=== PATIENT | female | born 1985 | race Caucasian/White ===

== ENCOUNTER → 2016-05-31 | Outpatient (CLI) | payer BC ==
[~2016-05-31] MED LIST: PHEN-876 PO; SULF800T23 PO
== END | disposition home or self-care (01) ==
LOC: C.PATHSPEC 13:20
PROVIDERS: ATTEND Obstetrics & Gynecology
DX: R87.612 Low grade squamous intraepithelial lesion on cytologic smear of cervix (LGSIL) (principal)

== ENCOUNTER → 2016-11-27 | Outpatient (CLI) | payer BC | END | disposition home or self-care (01) | LOC: C.PAPS 11:50 | PROVIDERS: ATTEND Obstetrics & Gynecology | DX: Z01.419 Encounter for gynecological examination (general) (routine) without abnormal findings (principal); Z87.42 Personal history of other diseases of the female genital tract ==

== ENCOUNTER → 2017-06-06 | Outpatient (CLI) | payer BC | END | disposition home or self-care (01) | LOC: C.PAPS 12:40 | PROVIDERS: ATTEND Obstetrics & Gynecology | DX: R87.612 Low grade squamous intraepithelial lesion on cytologic smear of cervix (LGSIL) (principal) ==

== ENCOUNTER → 2017-07-17 | Outpatient (CLI) | payer BC | END | disposition home or self-care (01) | LOC: C.LAB 16:29 | PROVIDERS: ATTEND Obstetrics & Gynecology | DX: Z29.13 Encounter for prophylactic Rho(D) immune globulin (principal); O26.859 Spotting complicating pregnancy, unspecified trimester ==

== ENCOUNTER → 2017-07-21 | Outpatient (CLI) | payer BC | END | disposition home or self-care (01) | LOC: C.LAB1850 14:42 | PROVIDERS: ATTEND Obstetrics & Gynecology | DX: O26.859 Spotting complicating pregnancy, unspecified trimester (principal); Z29.13 Encounter for prophylactic Rho(D) immune globulin; O46.90 Antepartum hemorrhage, unspecified, unspecified trimester; Z3A.00 Weeks of gestation of pregnancy not specified ==

== ENCOUNTER → 2017-07-28 | Outpatient (CLI) | payer BC | END | disposition home or self-care (01) | LOC: C.LAB 17:38 | PROVIDERS: ATTEND Obstetrics & Gynecology | DX: O46.90 Antepartum hemorrhage, unspecified, unspecified trimester (principal); Z3A.00 Weeks of gestation of pregnancy not specified ==

== ENCOUNTER → 2017-08-11 | Outpatient (CLI) | payer BC | END | disposition home or self-care (01) | LOC: C.LAB 18:27 | PROVIDERS: ATTEND Obstetrics & Gynecology | DX: O46.90 Antepartum hemorrhage, unspecified, unspecified trimester (principal); Z3A.00 Weeks of gestation of pregnancy not specified ==

== ENCOUNTER → 2017-08-18 | Outpatient (CLI) | payer BC | END | disposition home or self-care (01) | LOC: C.LAB1850 16:09 | PROVIDERS: ATTEND Obstetrics & Gynecology | DX: O46.90 Antepartum hemorrhage, unspecified, unspecified trimester (principal); Z3A.00 Weeks of gestation of pregnancy not specified ==

== ENCOUNTER → 2017-09-03 | Outpatient (CLI) | payer BC | END | disposition home or self-care (01) | LOC: C.LAB1850 13:20 | PROVIDERS: ATTEND Obstetrics & Gynecology | DX: O46.90 Antepartum hemorrhage, unspecified, unspecified trimester (principal) ==

== ENCOUNTER 2017-09-17 09:23 | Emergency (ER) | payer BC ==
[~2017-09-17] VITALS: Ht 175.3 cm; Wt 65.0 kg
[2017-09-17 09:29] VITALS: TEMP 36.7; Ht 175.3 cm; Wt 65.0 kg
[2017-09-17] MEDS ORDERED: KETOROLAC TROMETHAMINE 30 MG/ML VIAL IV STA (09:43)
[2017-09-17] MEDS ORDERED: ONDANSETRON INJ 2 MG/ML 2 ML VIAL IV STA (09:43)
[2017-09-17] MEDS ORDERED: SODIUM CHLORIDE 0.9% 1000ML 1,000 ML IV STA (09:43)
[2017-09-17] MEDS ORDERED: OPTIRAY 320 IV PRN (10:00)
[2017-09-17] MEDS ORDERED: KFL/250 PO (10:00)
[2017-09-17 10:18] LABS: BASO % 0.3 %; BASO ABS # 0.02 K/uL (0-0.2); EOS % 0.9 %; EOS ABS # 0.06 K/uL (0-0.5); HEMATOCRIT 35.2 % (37-47); HEMOGLOBIN 12.1 g/dL (12.0-16.0); LYMPH % 11.4 %; LYMPH ABS # 0.74 K/uL (1.2-3.4); MEAN CELL VOLUME 94.9 fL (80-100); MEAN CORPUSCULAR HEMOGLOBIN 32.6 pg (25-34); MEAN CORPUSCULAR HGB CONC 34.4 g/dl (32-36); MEAN PLATELET VOLUME 10.1 fL (7.4-10.4); MONO % 6.9 %; MONO ABS # 0.45 K/uL (0.11-0.59); NEUT % 80.5 %; NEUT ABS # 5.24 K/uL (1.4-6.5); PLATELET COUNT 217 K/uL (130-400); RED CELL DISTRIBUTION WIDTH CV 12.1 % (11.5-14.5); RED CELL DISTRIBUTION WIDTH SD 41.8 fL (36.4-46.3); WHITE BLOOD COUNT 6.51 K/uL (4.8-10.8)
[2017-09-17 10:49] LABS: ALBUMIN 3.8 gm/dl (3.4-5.0); CALCIUM 8.7 mg/dl (8.5-10.1); CREATININE 0.83 mg/dl (0.60-1.20); POTASSIUM 3.8 mmol/L (3.5-5.1)
[2017-09-17 10:52] LABS: TOTAL PROTEIN 7.1 gm/dl (6.4-8.2)
[2017-09-17] MEDS ORDERED: CEFTRIAXONE SOD INJ 1 GM ADDVIAL IV STA (11:21)
--- NOTE | 2017-09-17 11:41 | DIAGNOSTIC IMAGING REPORT ---
ABD/PELVIS IV CONTRAST ONLY CT DOSE: 424.62 mGycm HISTORY: Pelvic pain r flank pain/lower back pain TECHNIQUE: Multiaxial CT images of the abdomen and pelvis were performed following the use of intravenous contrast. A dose lowering technique was utilized adhering to the principles of ALARA. COMPARISON STUDY: None. FINDINGS: Lung bases are clear. Liver spleen and pancreas are unremarkable. There appears to be some fullness in the region of the pancreatic head which is felt to be due to interposition of the duodenal sweep. Bowel pattern is nonobstructive. Appendix is normal. There is a normal fecal load within the colon. Bladder is midline. There is a 3.5 cm right ovarian cyst with a collapsing 2 cm cyst. There is a small amount of free fluid within the pelvic cul-de-sac. Left ovary contains a 2 cm cyst. Bladder is midline. IMPRESSION: 1. Complex and/or partially collapsing right ovarian cyst measuring 3.6 x 1.9 cm. 2. 2 cm left ovarian cyst. 3. Nonobstructive bowel pattern. 4. Normal appendix. 5. No evidence for an obstructing urinary tract calculus. The above report was generated using voice recognition software. It may contain grammatical, syntax or spelling errors. Electronically signed by: Aldo Acevedo M.D. 09/17/2017 11:40 AM Dictated Date/Time: 09/17/2017 11:37 AM
[2017-09-17 12:28] VITALS: BP 110/55; PULSE 76; O2SAT 99
--- NOTE | 2017-09-17 16:11 | EMERGENCY ROOM VISIT NOTE ---
History Report prepared by Jayson: Dieter Pan Under the Supervision of: Dr. Kamaljit Seaman D.O. First contact with patient: 09:31 Chief Complaint: FLANK PAIN Stated Complaint: PAINFUL URINATION, VOMITTING, SIDE BACK, ABD PAIN History of Present Illness The patient is a 32 year old female who presents to the Emergency Room with complaints of constant right flank pain beginning yesterday. She reports vomiting today. She states that she had some pain in her right lower abdomen today as well, but this has improved. The patient also complains of urinary symptoms including burning with urination and increased frequency. She has had urinary symptoms for about 10 days. She began Bactrim for a UTI six days ago, but only took four days worth of medicine. The patient was seen by her PCP again yesterday for worsening of her urinary symptoms, and was started on a new antibiotic. Her LNMP was three weeks ago. She notes that she had a miscarriage two months ago. She has no history of STI, or abdominal surgery. Pt denies headache, change in vision, fevers, chest pain, shortness of breath, diarrhea, and melena. Source of History: patient Onset: Yesterday Position: other (right flank) Timing: constant Associated Symptoms: + vomiting, + abdominal pain (RLQ, improved), + urinary symptoms (burning, increased frequency), No fevers, No headache, No chest pain, No SOB, No melena, No diarrhea Review of Systems See HPI for pertinent positives & negatives. A total of 10 systems reviewed and were otherwise negative. Past Medical & Surgical Medical Problems: (1) No Known Active Medical Problems (2) UTI (urinary tract infection) Family History No pertinent family history stated. Social History Housing Status: lives with significant other Current/Historical Medications Scheduled Cephalexin Monohydrate (Keflex), Unknown Dose PO BID Phenazopyridine HCl (Pyridium), 200 MG PO TID PRN Allergies Coded Allergies: No Known Allergies (Unverified , 09/17/17) Physical Exam Vital Signs Date Time Temp Pulse Resp B/P (MAP) Pulse Ox O2 Delivery O2 Flow Rate FiO2 09/17/17 12:28 76 16 110/55 99 Room Air 09/17/17 11:30 71 16 117/68 99 Room Air 09/17/17 09:29 36.7 81 20 128/87 98 Room Air Physical Exam GENERAL: Sitting up in bed, alert, well appearing, well nourished, no distress, non-toxic EYE EXAM: normal conjunctiva. OROPHARYNX: no exudate, no erythema, lips, buccal mucosa, and tongue normal and mucous membranes are moist NECK: supple, no nuchal rigidity, no adenopathy, non-tender LUNGS: Clear to auscultation. Normal chest wall mechanics HEART: no murmurs, S1 normal and S2 normal ABDOMEN: abdomen soft, non-tender, normo-active bowel sounds, no masses, no rebound or guarding. BACK: Back is symmetrical on inspection and there is no deformity, no midline tenderness. Tenderness within the right flank. SKIN: no rashes and no bruising UPPER EXTREMITIES: upper extremities are grossly normal. LOWER EXTREMITIES: No pitting edema. NEURO EXAM: Normal sensorium, cranial nerves II-XII grossly intact, normal speech, no gross weakness of arms, no gross weakness of legs. Medical Decision & Procedures ER Provider Diagnostic Interpretation: Radiology results as stated below per my review and the radiologist's interpretation: ABD/PELVIS IV CONTRAST ONLY FINDINGS: Lung bases are clear. Liver spleen and pancreas are unremarkable. There appears to be some fullness in the region of the pancreatic head which is felt to be due to interposition of the duodenal sweep. Bowel pattern is nonobstructive. Appendix is normal. There is a normal fecal load within the colon. Bladder is midline. There is a 3.5 cm right ovarian cyst with a collapsing 2 cm cyst. There is a small amount of free fluid within the pelvic cul-de-sac. Left ovary contains a 2 cm cyst. Bladder is midline. IMPRESSION: 1. Complex and/or partially collapsing right ovarian cyst measuring 3.6 x 1.9 cm. 2. 2 cm left ovarian cyst. 3. Nonobstructive bowel pattern. 4. Normal appendix. 5. No evidence for an obstructing urinary tract calculus. The above report was generated using voice recognition software. It may contain grammatical, syntax or spelling errors. Electronically signed by: Aldo Acevedo M.D. 09/17/2017 11:40 AM Laboratory Results 09/17/17 10:00 Red Blood Count 3.71, Mean Corpuscular Volume 94.9, Mean Corpuscular Hemoglobin 32.6, Mean Corpuscular Hemoglobin Concent 34.4, Mean Platelet Volume 10.1, Neutrophils (%) (Auto) 80.5, Lymphocytes (%) (Auto) 11.4, Monocytes (%) (Auto) 6.9, Eosinophils (%) (Auto) 0.9, Basophils (%) (Auto) 0.3, Neutrophils # (Auto) 5.24, Lymphocytes # (Auto) 0.74, Monocytes # (Auto) 0.45, Eosinophils # (Auto) 0.06, Basophils # (Auto) 0.02 09/17/17 10:00 Test 09/17/17 09:45 09/17/17 10:00 Urine Color ORANGE Urine Appearance CLOUDY (CLEAR) Urine pH (4.5-7.5) Urine Specific [place] 1.016 (1.000-1.030) Urine Protein NEG (NEG) Urine Glucose (UA) (NEG) Urine Ketones (NEG) Urine Occult Blood (NEG) Urine Nitrite (NEG) Urine Bilirubin (NEG) Urine Urobilinogen (NEG) Urine Leukocyte Esterase (NEG) Urine RBC >30 /hpf (0-4) Urine WBC 1-5 /hpf (0-5) Urine Epithelial Cells 20-30 /lpf (0-5) Urine Bacteria 1+ (NEG) Urine Hyaline Casts 5-10 /lpf (0-5) Urine Test NEG (NEG) White Blood Count 6.51 K/uL (4.8-10.8) Red Blood Count 3.71 M/uL (4.2-5.4) Hemoglobin 12.1 g/dL (12.0-16.0) Hematocrit 35.2 % (37-47) Mean Corpuscular Volume 94.9 fL (80-100) Mean Corpuscular Hemoglobin 32.6 pg (25-34) Mean Corpuscular Hemoglobin Concent 34.4 g/dl (32-36) Platelet Count 217 K/uL (130-400) Mean Platelet Volume 10.1 fL (7.4-10.4) Neutrophils (%) (Auto) 80.5 % Lymphocytes (%) (Auto) 11.4 % Monocytes (%) (Auto) 6.9 % Eosinophils (%) (Auto) 0.9 % Basophils (%) (Auto) 0.3 % Neutrophils # (Auto) 5.24 K/uL (1.4-6.5) Lymphocytes # (Auto) 0.74 K/uL (1.2-3.4) Monocytes # (Auto) 0.45 K/uL (0.11-0.59) Eosinophils # (Auto) 0.06 K/uL (0-0.5) Basophils # (Auto) 0.02 K/uL (0-0.2) RDW Standard Deviation 41.8 fL (36.4-46.3) RDW Coefficient of Variation 12.1 % (11.5-14.5) Immature Granulocyte % (Auto) 0.0 % Immature Granulocyte # (Auto) 0.00 K/uL (0.00-0.02) Anion Gap 6.0 mmol/L (3-11) Est Creatinine Clear Calc Drug Dose 101.7 ml/min Estimated GFR () 109.7 Estimated GFR (Non- 94.6 BUN/Creatinine Ratio 13.3 (10-20) Calcium Level 8.7 mg/dl (8.5-10.1) Total Bilirubin 0.3 mg/dl (0.2-1) Direct Bilirubin 0.1 mg/dl (0-0.2) Aspartate Amino Transf (AST/SGOT) 12 U/L (15-37) Alanine Aminotransferase (ALT/SGPT) 16 U/L (12-78) Alkaline Phosphatase 30 U/L (45-117) Total Protein 7.1 gm/dl (6.4-8.2) Albumin 3.8 gm/dl (3.4-5.0) Lipase 106 U/L (73-393) Laboratory results per my review. Medications Administered Medications (Trade) Dose Ordered Sig/Marisol Route Start Time Stop Time Status Last Admin Dose Admin Ketorolac Tromethamine (Toradol Inj) 30 mg NOW STAT IV 09/17/17 09:43 09/17/17 09:45 DC 09/17/17 10:05 30 MG Sodium Chloride 1,000 ml @ 999 mls/hr Q1H1M STAT IV 09/17/17 09:43 09/17/17 10:43 DC 09/17/17 10:05 999 MLS/HR Ondansetron HCl (Zofran Inj) 4 mg NOW STAT IV 09/17/17 09:43 09/17/17 09:45 DC 09/17/17 10:05 4 MG Ceftriaxone Sodium (Rocephin Inj) 1 gm NOW STAT IV 09/17/17 11:21 09/17/17 11:22 DC 09/17/17 11:42 1 GM ED Course ED COURSE: Vital signs were reviewed and appeared normal. The patients medical record was reviewed The above diagnostic studies were performed and reviewed. ED treatments and interventions as stated above. 0935: The patient was evaluated in room A11B. A complete history and physical examination was performed. 0943: Ordered Zofran Inj 4 mg IV, Sodium Chloride 1000 ml @ 999 mls/hr IV, Toradol Inj 30 mg IV. 1121: Ordered Rocephin Inj 1 gm IV. 1210: Upon reevaluation, the patient is resting comfortably. I discussed my findings with the patient and she understands and agrees with the treatment plan. Based on the patients age, coexisting illnesses, exam and lab findings the decision to treat as an outpatient was made. The patient remained stable while under my care. The patient appeared well at the time of discharge. Medical Decision Differential diagnoses includes but is not limited to gastritis, peptic ulcer disease, GERD, gallbladder disease, pancreatitis, small bowel obstruction, acute coronary syndrome, pericarditis, ischemic bowel, irritable bowel disease, irritable bowel syndrome, appendicitis, diverticulitis, malignancy, hernia, urinary tract infection, torsion, /ectopic , perforation, trauma, infectious. Patient is a 32-year-old female who presents the ER for right flank pain. Patient was treated with antibiotics for UTI over the course of a total of 5 days. She notes that now she has severe right flank pain. CBC along with BMP, LFTs, bilirubin lipase is unremarkable. UA was contaminated. was negative. CT shows a right ovarian cyst which ruptured. Her pain is improved significantly. I do favor that this likely the cause of her symptoms. Patient was given IV Zofran, Toradol and fluids. Patient did feel significantly better. Patient was updated at bedside discharge follow-up with PCP as an outpatient as I do favor all the symptoms are likely related to her ovarian cyst and a recently treated UTI. Did encourage her to continue antibiotics. Discussed with Pt concerning signs and symptoms to watch out for. Pt was instructed to follow up with their PCP and discussed with the patient their option to return to the ED at anytime for persistent or worsening symptoms. The appropriate anticipatory guidance and out-patient management, including indications for return to the emergency department, were explained at length to the patient and understood. Medication Reconcilliation Current Medication List: was personally reviewed by me Blood Pressure Screening Patient's blood pressure: Normal blood pressure Blood pressure disposition: Did not require urgent referral Impression Primary Impression: Ovarian cyst Scribe Attestation The scribe's documentation has been prepared under my direction and personally reviewed by me in its entirety. I confirm that the note above accurately reflects all work, treatment, procedures, and medical decision making performed by me. Departure Information Dispostion Home / Self-Care Referrals No Doctor, Assigned (PCP) Forms HOME CARE DOCUMENTATION FORM, IMPORTANT VISIT INFORMATION Patient Instructions Cyst Ruptured Ovarian Tx, My [facility] Additional Instructions Please follow up with your primary care doctor with in the next 24 hours. Any worsening of your symptoms, please return to the ED immediately. This includes any fevers greater than 100.4, worsening pain, chest pain, shortness breath, persistent nausea, vomiting, unable to eat or drink, or any other concerning signs or symptoms from your standpoint. Please take Tylenol or Motrin as needed for pain. Please continue your antibiotics for your UTI. Problem Qualifiers Primary Impression: Ovarian cyst Laterality: right Qualified Codes: N83.201 - Unspecified ovarian cyst, right side
== END 2017-09-17 12:33 | disposition home or self-care (01) ==
LOC: C.EDB 09:24 → C.EDA 12:33
DX: N83.201 Unspecified ovarian cyst, right side (principal); Z87.440 Personal history of urinary (tract) infections

== ENCOUNTER 2024-07-06 20:10 | Inpatient (IN) ==
[2024-07-06] MEDS ORDERED: LIDOCAINE 1% LOCAL 20 ML VIAL INFIL PRN (20:58)
--- NOTE | 2024-07-06 21:06 | History & Physical Report ---
Date of Service July 06, 2024 Assessment & Plan (1) Supervision of elderly primigravida: Plan: Admit to L&D. EFM/toco. Labs - will check glucose with admission labs, will check glucose hourly. OK for epidural if she desires - not sure at this time if she'd like. (2) Insulin controlled gestational diabetes mellitus (GDM) during : History of Present Illness Chief Complaint: labor Primary Care Provider: SUDEEP Clarke 39yo @ 39 , presented to L&D with contractions. +FM, no vaginal bleeding, no leaking fluid. and Delivery Plans AMA *Weekly NST's @ 36wks. Abnormal QUAD- highrisk for Down Syndrome *Weekly NST's @ 36wks *Genetic consult--03/30 no further testing. *Low Risk Panorama Needs MMR PP Non immune hep B Rh negative *rhogam candidate Given 04/23/24 ML GDM on insulin *Wkly NSTs @32wks and Twice wkly @36wks *Serial growth US @28wks *Deliver by [facility] Allergies Allergy/AdvReac Type Severity Reaction Status Date / Time No Known Drug Allergies Allergy Verified 07/02/24 15:58 Home Medications Medication Instructions Recorded Confirmed Type prenat.vits,analia,yau-ntwu-tfiaa tab PO 12/02/23 07/02/24 History acetone (urine) test (Ketone Urine #50 ea 03/08/24 07/02/24 Rx Test strips) blood sugar diagnostic (OneTouch #150 ea 03/25/24 07/02/24 Rx Verio test strips) blood-glucose meter (OneTouch #1 ea 03/25/24 07/02/24 Rx Verio Flex Start kit) lancets 33 gauge (OneTouch Delica #150 ea 03/25/24 07/02/24 Rx Plus Lancet) insulin NPH isoph U-100 human 100 8 unit (0.08 mL) subcut .at bed 05/13/24 07/02/24 Rx unit/mL (3 mL) subcutaneous pen time #15 mL (Novolin N FlexPen) pen needle, diabetic 32 gauge x #100 ea 05/13/24 07/02/24 Rx 5/32" (BD Ultra-Fine Mary Pen Needle) Novolog FlexPen U-100 Insulin 100 5 unit (0.05 mL) subcut .with 05/14/24 07/02/24 Rx unit/mL (3 mL) subcutaneous largest meal #15 mL (insulin aspart U-100) Patient History Medical History 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 08/27/18 Mild dysplasia of cervix (JOSE I) Spontaneous Ovarian cyst UTI (urinary tract infection) Surgical History H/O breast biopsy 2022 left inner quad, benign H/O colposcopy with cervical biopsy S/P wisdom tooth extraction Family History (Updated 06/20/22 @ 14:49 by BALJEET Colon) Father Alcohol abuse Cardiac disorder Hypertension Mother Pancreatic cancer, Onset Age: 61 Denies family history of Ovarian cancer Prostate cancer Myocardial infarction Breast cancer Colorectal cancer Social History (Updated 12/02/23 @ 13:47 by Azul Chaudhry) Smoking Status: Never smoker Second Hand Exposure: No; Do You Dip or Chew Tobacco: No; Hx Alcohol Use: Yes Alcohol type: wine Hx Substance Use: No Preferred Language: Faroese Communication Ability: Effective Hearing Ability: Normal Chemistry Research Assistant Required: No Beliefs That Will Affect Care: None marital status: marital status details: Yuly (33) [phone] Current Living Situation: Spouse Current Living Situation Comment: lives with spouse, 1 dog. current occupational status: employed current occupation: senior op analyist for retail Feels Safe at Home: Yes Safety Concerns: Feels Safe At This Time Childhood Exposure to Second-Hand Smoke: No Diet: regular caffeine: Yes Dental Care, Regularly: Yes Physical Activity Frequency: Does not Exercise Seatbelt Use: sometimes Assistive Devices: None Review of Systems All systems reviewed & are unremarkable except as noted in HPI & below Physical Exam Physical Exam: FHT Cat 1 [place] Q 2 SVE 390/-1 per RN exam. Constitutional: WD/WN, vitals as above Respiratory: normal respiratory effort, lungs clear to auscultation no respiratory distress Cardiovascular: Rate/Rhythm: regular rate and regular rhythm Gastrointestinal (Abdomen): Inspection/Auscultation: abdomen normal to inspection Percussion/Palpation: abdomen soft; abdomen nontender Gravid. No s/s chorio or abruption. Skin: no rashes, warm and dry Psychiatric: A+Ox3, euthymic affect Results & Data Vital Signs (Past 12 Hours) Vital Signs Temp Pulse Resp BP 07/06/24 20:26 90 130/81 07/06/24 20:22 36.5 C 16 Coding Level of Care Code None Diagnoses Supervision of elderly primigravida O09.519 Insulin controlled gestational diabetes mellitus (GDM) in third trimester O24.414 Trimester: third trimester (2) Insulin controlled gestational diabetes mellitus (GDM) during Trimester: third trimester Qualified Code(s): O24.414 - Gestational diabetes mellitus in , insulin controlled
[2024-07-06] MEDS: LACTATED RINGER'S 1,000 ML IV PRN (21:19)
[2024-07-06 21:58] LABS: Hematocrit (blood only) 32.3 % (37.0-47.0); Hemoglobin 11.5 g/dl (12.0-16.0); Mean Corpuscular Hgb Conc 35.6 g/dL (32.0-36.0); Mean Corpuscular Volume 92.6 fL (80.0-100.0); Mean Platelet Volume 10.1 fL (9.4-12.4); Platelet Count 282 K/uL (130-400); RDW Coefficient of Variation 12.5 % (11.5-14.5); RDW Standard Deviation 42.1 fL (36.4-46.3); Red Blood Count 3.49 M/uL (4.20-5.40); White Blood Count 14.07 K/ul (4.8-10.8)
[2024-07-06] MEDS ORDERED: NALOXONE HCL 1 MG in SODIUM CHLORIDE 0.9% 1,000 ML IV PRN (22:23)
[2024-07-06] MEDS ORDERED: LIDOCAINE 2%/EPINEPHRINE 1:200,000 20 ML PF EPI STA (22:23)
[2024-07-06] MEDS ORDERED: LIDOCAINE 2% MPF LOCAL 5 ML VIAL EPI PRN (22:23)
[2024-07-06] MEDS ORDERED: fentaNYL citrate PF 100 MCG/2 ML VIAL EPI PRN (22:23)
[2024-07-06] MEDS ORDERED: SODIUM CHLORIDE 0.9% PF INJ 10 ML VIAL EPI STA (22:23)
[2024-07-06] MEDS ORDERED: BUPIVACAINE 0.25% PF 30 ML VIAL EPI STA (22:23)
[2024-07-06] MEDS ORDERED: ROPIVACAINE 0.5% PF 5 MG/ML 20 ML VIAL EPI PRN (22:23)
[2024-07-06] MEDS ORDERED: ePHEDrine sulfate 50 MG/ML AMP IV PRN (22:23)
[2024-07-06] MEDS ORDERED: SODIUM CHLORIDE 0.9% PF INJ 10 ML VIAL EPI PRN (22:23)
[2024-07-06] MEDS ORDERED: NALOXONE HCL 0.4 MG/1 ML VIAL/CARP IV PRN (22:23)
[2024-07-06] MEDS ORDERED: fentANYL 2 MCG/ML BUPIVacaine 0.125%-NSS 100ML BAG EPI PRN (22:23)
[2024-07-06] MEDS ORDERED: diphenhydrAMINE 50 MG/ML VIAL IV PRN (22:23)
[2024-07-06] MEDS ORDERED: BUPIVACAINE 0.25% PF 30 ML VIAL EPI PRN (22:23)
[2024-07-06] MEDS ORDERED: NALBUPHINE HCL INJ 10 MG/ML AMP IV PRN (22:23)
[2024-07-06] MEDS ORDERED: fentaNYL citrate PF 100 MCG/2 ML VIAL EPI STA (22:23)
--- NOTE | 2024-07-06 22:26 | Anesthesiology Consultation ---
Date of Service July 06, 2024 Assessment & Plan Chart Review Chart Review: Patient NOT seen in Pre Admission Testing and Acceptable Risk for Labor Epidural Consults Requested none ASA ASA2 Proposed Anesthesia Anesthesia Type: Labor Epidural Risk / Benefits Reviewed With: PT / POA / Parent / Guardian, Accepts Plan and Informed Consent Obtained History Height/Weight Height: 5 ft 9 in Weight: 82.1 kg Allergies Allergy/AdvReac Type Severity Reaction Status Date / Time No Known Drug Allergies Allergy Verified 07/02/24 15:58 Medications Home Medications Medication Instructions Recorded Confirmed Last Taken prenat.vits,analia,dhr-gfac-zqdkc tab PO 12/02/23 07/02/24 Unknown acetone (urine) test (Ketone Urine #50 ea 03/08/24 07/02/24 Unknown Test strips) blood sugar diagnostic (OneTouch #150 ea 03/25/24 07/02/24 Unknown Verio test strips) blood-glucose meter (OneTouch #1 ea 03/25/24 07/02/24 Unknown Verio Flex Start kit) lancets 33 gauge (OneTouch Delica #150 ea 03/25/24 07/02/24 Unknown Plus Lancet) insulin NPH isoph U-100 human 100 8 unit (0.08 mL) subcut .at bed 05/13/24 07/02/24 Unknown unit/mL (3 mL) subcutaneous pen time #15 mL (Novolin N FlexPen) pen needle, diabetic 32 gauge x #100 ea 05/13/24 07/02/24 Unknown 5/32" (BD Ultra-Fine Mary Pen Needle) Novolog FlexPen U-100 Insulin 100 5 unit (0.05 mL) subcut .with 05/14/24 07/02/24 Unknown unit/mL (3 mL) subcutaneous largest meal #15 mL (insulin aspart U-100) Active Medications Generic Name Dose Route Start Last Admin Trade Name Freq PRN Reason Stop Dose Admin Lactated Ringer's 1,000 mls @ 125 mls/hr 07/06/24 20:58 07/06/24 21:19 Lr IV 07/07/24 20:57 999 mls/hr .Q8H PRN Administration L&D Protocol Protocol NPO Date Last Intake of Fluids: 07/06/24 Time Last Intake of Fluids: 22:00 Date Last Intake of Solids: 02/25/25 Time Last Intake of Solids: 16:30 Past Medical History Medical History 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 08/27/18 Mild dysplasia of cervix (JOSE I) Spontaneous Ovarian cyst UTI (urinary tract infection) Exercise / Class Metabolic Activity 1 > 8 Run/Swim/Ski/Tennis Past Family History Family History Father Alcohol abuse Cardiac disorder Hypertension Mother Pancreatic cancer, Onset Age: 61 Denies family history of Ovarian cancer Prostate cancer Myocardial infarction Breast cancer Colorectal cancer Past Surgical History Surgical History H/O breast biopsy 2022 left inner quad, benign H/O colposcopy with cervical biopsy S/P wisdom tooth extraction Past Anesthesia History No Hx of Anesthesia Complications and No Family Hx of Anesthesia Complications History of PONV No Hx of PONV and No Hx of Motion Sickness Social History Smoking Status: Never smoker Do You Dip or Chew Tobacco: No Hx Alcohol Use: Yes Alcohol type: wine Hx Substance Use: No substance use type: does not use Review of Systems ROS Unobtainable: All systems reviewed & are unremarkable except as noted in HPI & below Physical Exam Vital Signs Last Vital Signs Temp 36.5 C 07/06/24 20:22 Pulse 90 07/06/24 20:26 Resp 16 07/06/24 20:22 BP 130/81 07/06/24 20:26 ENMT Mouth: no TMJ abnormality Thyromental Distance: > or= 3.5 Finger Breadths Mallampati Class: II Neck normal visual inspection and trachea midline; neck extension not limited Respiratory normal respiratory effort Auscultation: lungs clear to auscultation bilaterally Cardiovascular Rate/Rhythm: regular rate and regular rhythm Heart Sounds: no murmur Musculoskeletal Spine: normal cervical ROM Extremities: full ROM of extremities Neurologic moves all extremities Psychiatric Orientation: alert and oriented x 3 Testing Laboratory Results 07/06/24 21:38 07/06/24 21:38
[2024-07-06] MEDS: fentANYL 2 MCG/ML BUPIVacaine 0.125%-NSS 100ML BAG ONE (22:43)
[2024-07-06] MEDS: fentaNYL citrate PF 100 MCG/2 ML VIAL ONE (22:44)
[2024-07-06] MEDS: SODIUM CHLORIDE 0.9% PF INJ 10 ML VIAL ONE (22:44)
[2024-07-06] MEDS: BUPIVACAINE 0.25% PF 30 ML VIAL ONE (22:44)
[2024-07-06] MEDS: LIDOCAINE 2%/EPINEPHRINE 1:200,000 20 ML PF ONE (22:44)
[2024-07-06] MEDS: ePHEDrine sulfate 50 MG/ML AMP ONE (22:45)
[2024-07-07] MEDS ORDERED: CALCIUM CARBONATE 500 MG CHEWABLE TAB PO PRN (00:49)
[2024-07-07] MEDS: OXYTOCIN 30 UNITS/NSS 30 UNITS/500 ML BAG IV PRN (01:54)
--- NOTE | 2024-07-07 02:29 | Delivery Summary ---
Vaginal Delivery Summary Date of Service July 07, 2024 Vaginal Delivery Summary and 2nd Degree LAC Vaginal Delivery Summary: Pre-delivery diagnoses: 39yo @ 39 1/, spontaneous labor, GDMA2, Rh negative, AMA, abnormal Quad (high risk Down Syndrome - normal Panorama) Post-delivery diagnoses: same Procedure: spontaneous vaginal delivery Surgeon: Haleigh Laird DO Complications: none Findings: Viable . Apgars: 8/9 . Weight pending, please see nursery records Estimated QBL: 200cc Description of delivery: The patient progressed to complete with epidural anesthesia. She then began to push. She spontaneously vaginally delivered a viable from the cephalic presentation. The head delivered in NAIMA position. The anterior shoulder delivered, followed by the posterior shoulder, followed by the body. The baby was placed on mother's abdomen and a spontaneous cry was heard. Delayed cord clamping was employed, and the cord was doubly clamped and cut. Cord blood was obtained. The placenta was delivered spontaneously intact with a 3-vessel cord. The uterus and vagina were swept of clots and debris. IV pitocin was given. The uterus became firm. The cervix, vagina, and perineum were inspected. 2nd degree perineal laceration was noted and repaired with 3-0 Vicryl in standard fashion. Right labial tear reapproxinated with 3-0 Vicryl interrupted sutures. Excellent hemostasis was observed. The mother and baby are recovering in stable and good condition in the room. Sponge, needle and instrument counts were correct x 2. Haleigh Laird DO [facility] Vaginal Delivery Charge Vaginal Delivery Codes: 19405 global code for the antepartum, delivery, and post- Delivery Type Details: and 2nd Degree LAC
[2024-07-07] MEDS ORDERED: BENZOCAINE 20% SPRY 85 APPLN/85 GM CAN EXT PRN (03:09)
[2024-07-07] MEDS ORDERED: HYDROCORTISONE ACETATE 25 MG SUPP PR PRN (03:09)
[2024-07-07] MEDS ORDERED: OXYTOCIN 30 UNITS/NSS 30 UNITS/500 ML BAG IV PRN (03:09)
[2024-07-07] MEDS ORDERED: oxyCODONE/ACETAMINOPHEN 5mg/325mg TAB PO PRN (03:09)
[2024-07-07] MEDS: DOCUSATE SODIUM 100 MG CAP PO SCH (07:49)
[2024-07-07] MEDS: PRENATAL VITAMIN 1 TAB PO SCH (07:50)
--- NOTE | 2024-07-07 09:22 | Anesthesia Procedure Note ---
Date of Service July 07, 2024 Anesthesia Post Epidural Note Vital Signs Vital Signs: Temp Pulse Resp BP Pulse Ox O2 Del Method 36.5 C 90 18 119/75 96 Room Air 07/07/24 07:15 07/07/24 07:15 07/07/24 07:15 07/07/24 07:15 07/07/24 07:15 07/07/24 07:15 Pain Intensity Lower Back: Pain Intensity: 3 Notes Mental Status: alert / awake / arousable Nausea / Vomiting: adequately controlled Pain: adequately controlled Airway Patency, RR, SpO2: stable & adequate BP & HR: stable & adequate Hydration State: stable & adequate Neuraxial Anesthesia: was administered and sensory block is resolving Anesthetic Complications: no major complications apparent and Pt Satisfied with anesthetic care Epidural: Removed without complications and With tip intact
[2024-07-07] MEDS: ACETAMINOPHEN 325 MG TAB PO PRN (10:10)
[2024-07-07] MEDS: IBUPROFEN 600 MG TAB PO PRN (18:00)
--- NOTE | 2024-07-08 06:36 | Obstetrical Progress Note ---
Date of Service <Dannie Vidales MD - Last Filed: 07/08/24 07:15> July 08, 2024 Assessment & Plan <Danine Vidales MD - Last Filed: 07/08/24 07:15> (1) care and examination: PPD#1 s/p at 39 wga: Stable. Rh-, gbs neg, rubella equiv, vitals wnl, Hgb stable Continue routine care, ambulation, diet as tolerated Needs rhogam, MMR Plan for DC tomorrow <Jennifer Casey MD, FACOG - Last Filed: 07/08/24 07:49> (1) care and examination: Subjective <Dannie Vidales MD - Last Filed: 07/08/24 07:15> Patient is a 39yo who is PPD#1 following at 39 wga. Moderate abd pain/soreness, relieved by analgesics Voiding w/o issue Tolerating meals Ambulating normally Lochia minimal, diminishing Planning to breastfeed. Constitutional: no fever, no chills or no sweats Respiratory: no dyspnea Cardiovascular: no chest pain, no palpitations or no calf pain Breast: no breast pain Gastrointestinal: no nausea or no vomiting Genitourinary (female): no dysuria Neurologic: no headache(s) no changes in vision, no headaches Physical Exam <Dannie Vidales MD - Last Filed: 07/08/24 07:15> General: Alert, oriented. No acute distress. Cardiac: Regular rate and rhythm, no murmurs, rubs, or gallops. Respiratory: Clear to auscultation bilaterally. No increased work of breathing. Symmetrical chest rise. No respiratory distress. Abdomen: Soft, nontender, nondistended. Bowel sounds present. Uterus: Uterine fundus firm, nontender, palpable 1 cm below the umbilicus. Lower extremities: No lower extremity edema or swelling. No deep calf pain. Results & Data <Dannie Vidales MD - Last Filed: 07/08/24 07:15> Vital Signs (Past 12 Hours) Vital Signs Temp Pulse Resp BP Pulse Ox O2 Del Method 07/07/24 23:40 36.4 C L 71 16 106/67 97 Room Air 07/07/24 19:55 36.4 C L 95 H 18 105/60 95 Room Air Supervising Physician <Jennifer Casey MD, FACOG - Last Filed: 07/08/24 07:49> Co-Signing Physician Notes Resident Physician Supervision Note: I was present with Dr. Vidales during the history and exam. I discussed the case with the resident and agree with the findings and plan as documented in the note. Any exceptions or clarifications are listed here: pt doing ok. she notes some cramps and just tired as baby cluster feeding. no bleeding issues. eating and voiding. abd soft ff 2 down nt, ext nt calves. ppd#1 s/p , routine care. needs rhogam and mmr. breast feeding. Documented By: Jennifer Casey MD, FACOG Resident Activity Tracking <Dannie Vidales MD - Last Filed: 07/08/24 07:15> Resident Involvement: Resident Care Provided Care Provided: Adult Hospital Medicine
[2024-07-08 14:46] LABS: Hematocrit (blood only) 27.9 % (37.0-47.0); Hemoglobin 9.5 g/dl (12.0-16.0)
[2024-07-08 19:01] VITALS: RESP 16
[2024-07-08] MEDS: bisacodyL 5 MG TABEC PO SCH (21:56)
[2024-07-09] MEDS ORDERED: bisacodyL 10 MG SUPP PR PRN (03:09)
--- NOTE | 2024-07-09 06:53 | Obstetrical Progress Note ---
Date of Service <Dannie Vidales MD - Last Filed: 07/09/24 07:41> July 09, 2024 Assessment & Plan <Dannie Vidales MD - Last Filed: 07/09/24 07:41> (1) care and examination: PPD#2 s/p at 39 wga: Stable. Rh-, gbs neg, rubella equiv, vitals & H/H stable Continue routine care, ambulation, diet as tolerated Meet w foreign law consultant today, schedule outpatient f/u Needs rhogam, MMR Plan for DC today <Magnus Hartman MD - Last Filed: 07/12/24 09:33> (1) care and examination: Subjective <Dannie Vidales MD - Last Filed: 07/09/24 07:41> Patient is a 39yo who is PPD#2 following at 39 wga. Reports her pain is well-controlled, she is eating, drinking, ambulating, voiding w/o issue, lochia minimal is diminishing Planning to breastfeed. Her major concern today is difficulty getting baby to latch. Has seen foreign law consultant 2x & was given info on seeing them outpatient Constitutional: no fever, no chills or no sweats Respiratory: no dyspnea Cardiovascular: no chest pain, no palpitations or no calf pain Breast: no breast pain Gastrointestinal: no nausea or no vomiting Genitourinary (female): no dysuria Neurologic: no headache(s) Physical Exam <Dannie Vidales MD - Last Filed: 07/09/24 07:41> General: Alert, oriented. No acute distress. Cardiac: Regular rate and rhythm, no murmurs, rubs, or gallops. Respiratory: Clear to auscultation bilaterally. No increased work of breathing. Symmetrical chest rise. No respiratory distress. Abdomen: Soft, nontender, nondistended. Bowel sounds present. Uterus: Uterine fundus firm, nontender, palpable 1 cm below the umbilicus. Lower extremities: No lower extremity edema or swelling. No deep calf pain. Results & Data <Dannie Vidales MD - Last Filed: 07/09/24 07:41> Vital Signs (Past 12 Hours) Vital Signs Temp Pulse Resp BP Pulse Ox O2 Del Method 07/08/24 23:00 36.5 C 81 16 110/68 97 Room Air 07/08/24 19:00 36.9 C 89 16 115/69 99 Room Air Laboratory Results 07/08/24 14:30 07/06/24 21:38 Supervising Physician <Magnus Hartman MD - Last Filed: 07/12/24 09:33> Co-Signing Physician Notes Patient seen with resident and agree with the above findings and plan. Stable for discharge. Resident Activity Tracking <Dannie Vidales MD - Last Filed: 07/09/24 07:41> Resident Involvement: Resident Care Provided Care Provided: Adult Hospital Medicine
[2024-07-09 10:26] VITALS: BP 106/64; PULSE 89; TEMP 98.4; O2SAT 96
[2024-07-09] MEDS: MEASLES, MUMPS & RUBELLA VIRUS VACCINE (MMR) 0.5ML VIAL SQ ONE (11:34)
[2024-07-09] MEDS: DIPHTHER/TETAN/PERTUS Vaccine (Tdap, Adol/Adult) 0.5mL IM ONE (11:35)
== END 2024-07-09 12:15 | disposition home or self-care (01) | DRG 807 ==
LOC: OPB 20:10 → 4S1 20:15 → 4E2 07-07 04:51
DX: O24.414 Gestational diabetes mellitus in pregnancy, insulin controlled; Z37.0 Single live birth; O70.1 Second degree perineal laceration during delivery; Z3A.39 39 weeks gestation of pregnancy